=== PATIENT | female | born 1990 | race Hispanic/Latino ===

== ENCOUNTER 2017-12-23 00:05 | Inpatient (IN) | payer BC ==
[2017-12-23] MEDS ORDERED: Lactated Ringer's 1,000 ML IV ONE (01:02)
[2017-12-23 01:03] VITALS: BMI 25.9
[2017-12-23] MEDS ORDERED: Oxytocin 30 UNIT 30 UNITS/500 ML BAG IV ONE (01:03)
[2017-12-23] MEDS ORDERED: Lactated Ringer's 1,000 ML IV SCH (01:15)
[2017-12-23] MEDS ORDERED: OXYTOCIN/0.9 % NS 20 UNIT/1,000 ML BAG IV SCH (01:15)
[2017-12-23] MEDS ORDERED: Fentanyl/Bupivacaine HCl 250 ML EPI ONE (02:31)
[2017-12-23 02:35] LABS: BASO # 0.1 K/uL (0.0-0.2); BASO % 0.9 % (0.0-2.0); EOS # 0.1 K/uL (0.0-0.7); EOS % 0.4 % (0.0-4.0); LYMPH # 2.3 K/uL (1.0-4.3); MEAN CELL VOLUME 83.3 fl (81.0-99.0); MEAN CORPUSCULAR HEMOGLOBIN 27.2 pg (27.0-31.0); MEAN CORPUSCULAR HGB CONC 32.6 g/dL (33.0-37.0); MEAN PLATELET VOLUME 8.9 fl (7.2-11.7); MONO # 0.6 K/uL (0.0-0.8); MONO % 4.3 % (0.0-10.0); NEUT # 11.9 K/uL (1.8-7.0); NEUT % 79.4 % (50.0-75.0); NRBC % 0.1 % (0.0-0.0); RBC 4.77 Mil/uL (3.80-5.20)
[2017-12-23] MEDS ORDERED: Lidocaine 1% Inj (20ml) ONE (02:40)
--- NOTE | 2017-12-23 03:34 | OBADHP ---
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 She denies vaginal bleeding. and she repor ts good movement. Denies chest pain, shortness of breath, dysuria, nausea and vomiting. ROS: systems reviewed and negative except for stated above in HPI. Obhx: HSV- taking valacyclovir 500mg po BID Family hx: FAther with DM2 Social hx: No smoking history, drinking or illicit drug use. Surgical history: Dneies Allergies: N.K.D.A Medications: PNV; Valacyclovir 500mg BID Labs: HIV: negative HbsAG: negative Rubella: immune GBS: negative Gc/Cl: negative RPR: negative ABO: O+ Antibody: negative Physical exam: Patient in no acute distress. Heart: S1 and S2 appreciated on exam. No murmurs, gallops or rubs. Lungs: Clear air entry bilaterally. Abdomen: Gravid, soft, non-tender to palpation. No CVA tenderness FHT: 135 baseline; moderate variability; acceleration 15 x 15 noted; no decelerations; category 1 tracing A/P: 27 yo with IUP at 39.0 based on OSCAR of 12/30/17 admitted for Labor. - Admit to L and D and initiate labor protocol - Cbc - Type and Screen - continous monitoring. Discussed case with Dr. Paul --Lupe Beaulieu, PGY1 Pelvic Type - PN: Adequate Extremities - PN: Normal Abdomen - PN: Normal Back - PN: Normal Breast - PN: Not Done Lungs - PN: Normal Heart - PN: Normal Thyroid - PN: Not Done Neurologic - PN: Not Done HEENT - PN: Not Done General - PN: Normal FHR - Baseline A Provider: 135 Contraction Comments Provider: every 5 minutes Vital Signs Provider: Reviewed; Within Normal Limits IP Chief Complaint: Uterine contractions; Suspected ruptured membranes; Maternal discomfort NICHD Variability Prov Fetus A: Moderate 6-25bpm FHR Category Provider Fetus A: Category I NICHD Decel Fetus A IP Provider: None Dilatation, Provider: 3-4 Effacement, Provider: 100 Station, Provider: -2 Genitourinary Exam: Normal DTRs - PN: Normal IP Adm Impression: Term, intrauterine IP Admit Plan: Admit to unit; Initiate labor protocol Datetime: 12/23/2017 01:04 NICHD Accel Fetus A IP Provider: [id number]
--- NOTE | 2017-12-23 03:36 | OBDS ---
DELIVERY PERSONNEL Delivery Doctor: Sally Paul MD Drawing Instructor: Trudi Richardson RN MATERNAL INFORMATION Delivery Anesthesia: Local Medications in Delivery: Lidocaine 1% Estimated Blood Loss (ml): 300 Placenta Cultured: No Maternal Complications: Precipitous Labor (<3hrs) Provider Comments: Normal spontaneous vaginal delivery. Patient delivered viable with Apgars of 9 and 9 at one and 5 minutes respectively. Placenta delivered spontaneously. Lacerations repaired, as above. Uterus firm and appropriately hemostatic fo llowing delivery. Patient tolerated delivery and repair well. No complications. Estimated blood loss 300 mL. LABOR SUMMARY EDC: 12/30/2017 00:00 No. Babies in Womb: 1 Attempted: No Labor Anesthesia: None LABOR INFORMATION Reason for Induction: Not Applicable Onset of Labor: 12/23/2017 02:38 Complete Dilatation: 12/23/2017 02:38 Oxytocin: N/A Group B Beta Strep: Negative Antibiotics # of Doses: 0 Antibiotics Time of Last Dose: n/a Steroids Given: None Reason Steroids Not Administered: Not Applicable MEMBRANES Membranes Rupture Method: Spontaneous Rupture of Membranes: 12/23/2017 09:15 Amniotic Fluid Color: Clear Amniotic Fluid Amount: Moderate Amniotic Fluid Odor: None STAGES OF LABOR Stage 1 hrs: 0 Stage 1 min: 0 VAGINAL DELIVERY Episiotomy: None Laceration Extension: First Degree Laceration Type: Vaginal; Periurethral Laceration Repair: Yes Laceration Repair Note: Bilateral vaginal first-degree lacerations and bilateral first-degree periur ethral lacerations. Area was infiltrated with 1% lidocaine. Lacerations repaired with 2. 0 repeat wit hout complication. Patient tolerated repair well. Initial Vag Sponge Count: 5 Final Vag Sponge Count: 5 Initial Vag Sharps Count: 2 Final Vag Sharps Count: 2 Sponge Count Correct: Yes Sharps Count Correct: Yes SCORES BABY A Heart Rate 1 min: >100 bpm Resp Effort 1 min: Good Cry Reflex Irritability 1 min: Cough or Sneeze or Pulls Away Muscle Tone 1 min: Active Motion Color 1 min: Body [place], Extremities Blue Resuscitation Effort 1 min: N/A SCORE 1 MIN: 9 Heart Rate 5 min: >100 bpm Resp Effort 5 min: Good Cry Reflex Irritability 5 min: Cough or Sneeze or Pulls Away Muscle Tone 5 min: Active Motion Color 5 min: Body [place], Extremities Blue Resuscitation Effort 5 min: N/A SCORE 5 MIN: 9
[2017-12-23] MEDS ORDERED: Benzocaine/Menthol SPRAY TOP PRN ×2 (03:51→07:34)
[2017-12-23 04:53] VITALS: O2SAT 100
[2017-12-23 06:39] LABS: HEMOGLOBIN 11.7 g/dL (12.0-16.0); MEAN CELL VOLUME 83.8 fl (81.0-99.0); MEAN CORPUSCULAR HEMOGLOBIN 27.7 pg (27.0-31.0); RBC 4.21 Mil/uL (3.80-5.20); RED CELL DISTRIBUTION WIDTH 12.9 % (11.5-14.5); WHITE BLOOD COUNT 20.4 K/uL (4.8-10.8)
--- NOTE | 2017-12-24 19:08 | OBPPN ---
Datetime: 12/24/2017 10:45 PP Pain Prov: Within normal limits PP Nausea Prov: Denies PP Flatus Prov: Yes PP Breasts Prov: Normal PP Heart Prov: Normal PP Lungs Prov: Normal PP Abdomen/Uterus Prov: Normal PP Lochia Prov: Normal PP Vulva/Perineum Prov: Normal PP CVA Tenderness Prov: Normal PP Extremities Prov: Normal PP Comments Phys Exam Prov: Abd: Soft, NT, BS- present UT- Firm PP Impression Prov: Normal progression PP Plan Prov: Continue present management PP Progress Note Prov: S/P , PPD #1 Clinically Stable. Plan: Continue care. Vital Signs Provider PP: Reviewed
--- NOTE | 2017-12-25 10:13 | OBPPN ---
Datetime: 12/25/2017 10:09 PP Pain Prov: Within normal limits PP Nausea Prov: Denies PP Flatus Prov: Yes PP Breasts Prov: Normal PP Heart Prov: Normal PP Lungs Prov: Normal PP Abdomen/Uterus Prov: Normal PP Lochia Prov: Normal PP Vulva/Perineum Prov: Normal PP CVA Tenderness Prov: Normal PP Extremities Prov: Normal PP Comments Phys Exam Prov: ABD: Soft, NT, BS- present UT- Firm, PP Impression Prov: Normal progression PP Plan Prov: Discharge PP Progress Note Prov: S/P , PPD #2 Clinoically Stable. Plan: D/C Home. F/U with OB doctor in 6 weeks. Vital Signs Provider PP: Reviewed
--- NOTE | 2017-12-25 10:13 | OBDCSUM ---
Datetime: 12/25/2017 10:11 Discharged to, Provider: Home Follow up at, Provider: Dr Paul Disch Instr Activity: Normal activity Disch Instr Diet: Regular Discharge Instructions, Provider: Routine instructions given Discharge Diagnosis, Provider: Term Delivered Discharge Time: 12/25/2017 10:11 Follow up in weeks, Provider: 4-6 weeks Disch Referrals: None Contraception discussed, Prov: Yes Discharge Comment, Provider: Uncomplicated Spontaneous vaginal delivery, Clinically Stable Discharge Diagnosis Prov Other: Uncomplicated Spontaneous vaginal delivery, Clinically Stable
[2017-12-25 18:08] VITALS: BP 106/56; PULSE 76; RESP 20; TEMP 98.7
== END 2017-12-25 13:05 | disposition home or self-care (01) | DRG 806 ==
LOC: H.EROB2 00:05 → H.L&D 01:03 → H.OB/GYN 03:50
PROVIDERS: ADMIT Obstetrics & Gynecology; ATTEND Obstetrics & Gynecology
PROC: 10E0XZZ Delivery of Products of Conception, External Approach (ICD-10-PCS; principal; 2017-12-23)
PROC: 0HQ9XZZ Repair Perineum Skin, External Approach (ICD-10-PCS; 2017-12-23)
PROC: 4A1HXCZ Monitoring of Products of Conception, Cardiac Rate, External Approach (ICD-10-PCS; 2017-12-23)
DX: O62.3 Precipitate labor (principal); O98.52 Other viral diseases complicating childbirth; Z37.0 Single live birth; B00.89 Other herpesviral infection; O70.0 First degree perineal laceration during delivery; Z3A.39 39 weeks gestation of pregnancy